=== PATIENT | female | born 1980 | race Caucasian/White ===

== ENCOUNTER 2023-02-18 10:22 | Inpatient (IN) ==
[2023-02-18] MEDS ORDERED: SODIUM CHLORIDE 0.9% 1000ML 2,000 ML IV ONE (11:20)
[2023-02-18] MEDS ORDERED: ACETAMINOPHEN 1,000 MG/100 ML VIAL IV STA (11:20)
[2023-02-18] MEDS ORDERED: cefTRIAXone SODIUM 2,000 MG/70 ML BAG IV STA (11:58)
[2023-02-18] MEDS ORDERED: AZITHROMYCIN 500 MG in DEXTROSE 5% 250 ML IV STA (11:58)
[2023-02-18] MEDS ORDERED: ALBUT/IPRATROP 3MG/0.5MG NEB 3 ML VIAL NEB STA (12:00)
[2023-02-18] MEDS ORDERED: methylPREDNISolone 125 MG/2 ML VIAL IV STA (12:00)
[2023-02-18 12:21] LABS: Influenza A virus by PCR Negative (Neg); Influenza B virus by PCR Negative (Neg); RSV by PCR Negative (Neg); SARS CoV2 RNA(COVID-19) Ceph NEGATIVE (Negative)
[2023-02-18 12:39] LABS: Basophils # (auto) 0.06 K/uL (0-0.2); Basophils % (auto) 0.4 %; Eosinophils # (auto) 0.11 K/uL (0-0.50); Eosinophils % (auto) 0.7 %; Hematocrit (blood only) 37.2 % (37.0-47.0); Hemoglobin 12.5 g/dl (12.0-16.0); Immature Granulocytes # (auto) 0.07 K/uL (0.01-0.20); Immature Granulocytes % (auto) 0.5 %; Lymphocytes # (auto) 1.18 K/uL (1.2-3.4); Lymphocytes % (auto) 7.6 %; Mean Corpuscular Hemoglobin 28.9 pg (25.0-34.0); Mean Corpuscular Hgb Conc 33.6 g/dL (32.0-36.0); Mean Corpuscular Volume 85.9 fL (80.0-100.0); Mean Platelet Volume 9.9 fL (9.4-12.4); Monocytes % (auto) 4.5 %; Neutrophils # (auto) 13.31 K/uL (1.40-6.50); Neutrophils % (auto) 86.3 %; Platelet Count 310 K/uL (130-400); RDW Coefficient of Variation 13.5 % (11.5-14.5); RDW Standard Deviation 42.5 fL (36.4-46.3); Red Blood Count 4.33 M/uL (4.20-5.40); White Blood Count 15.43 K/ul (4.8-10.8)
--- NOTE | 2023-02-18 12:47 | XRay Report ---
XR chest 1V portable HISTORY: Chest pain, nonspecific COMPARISON: Chest 08/31/2022. FINDINGS: No pneumothorax. No pleural effusions. The cardiac silhouette is normal in size. There are hazy bilateral airspace opacities most pronounced within the mid to lower lung zones. This likely rep resents a multifocal pneumonia. No acute fractures identified. IMPRESSION: Hazy bilateral airspace opacities likely representing a multifocal pneumonia. ACT 112: Negative or not required by law. Electronically signed by: Arpan Akers M.D. 02/18/2023 12:45 PM
[2023-02-18 12:50] LABS: Albumin Globulin Ratio 0.9 (0.9-2); Albumin Level 3.3 gm/dl (3.4-5.0); BUN Creatinine Ratio 14.6 (10-20); Bilirubin,Total 0.4 mg/dl (0.2-1.0); Calcium 8.9 mg/dl (8.6-10.3); Creatinine Clr Calc Pharmacy 157.4 ml/min; Est GFR (African American) 138.3 ml/min; Est GFR (Non-African American) 119.3 ml/min; Globulin 3.7 gm/dl (2.5-4.0); Magnesium 1.4 mg/dl (1.7-2.4); Potassium 3.7 mmol/L (3.5-5.1)
[2023-02-18] MEDS ORDERED: OPTIRAY 320 500ml IV ONE (13:50)
[2023-02-18] MEDS: MAGNESIUM SULFATE / D5W 1 GM/100 ML BAG IV SCH ×2 (14:03→15:24)
--- NOTE | 2023-02-18 14:04 | Electrocardiogram Report ---
Test Reason : Blood Pressure : / mmHG Vent. Rate : 097 BPM Atrial Rate : 097 BPM P-R Int : 120 ms QRS Dur : 072 ms QT Int : 342 ms P-R-T Axes : 049 003 013 degrees QTc Int : 434 ms Poor data quality, interpretation may be adversely affected Normal sinus rhythm Normal ECG When compared with ECG of 21-DEC-2022 17:04, Sinus rhythm has replaced Ectopic atrial rhythm Nonspecific T wave abnormality, improved in Inferior leads Nonspecific T wave abnormality no longer evident in Lateral leads Confirmed by Bran Mccloud ([id number]) on 02/18/2023 2:04:02 PM Referred By: REFERRED SELF Confirmed By:Bran Mccloud
--- NOTE | 2023-02-18 14:26 | CT Scan Report ---
CT ANGIOGRAPHY OF THE CHEST, PULMONARY EMBOLUS PROTOCOL CLINICAL HISTORY: Shortness of breath and chest pain. Evaluate for pulmonary embolus. COMPARISON STUDY: Chest CT August 31, 2022 and chest radiograph performed earlier today. TECHNIQUE: Following IV administration of 110 mL of Optiray, helical axial images of the chest were o btained utilizing the pulmonary embolus protocol. Maximal intensity projections and sagittal and cor onal reformats were viewed on an independent 3D workstation. IV contrast was administered without co mplication. Automated exposure control was utilized for the study. A dose lowering technique was ut ilized adhering to the principles of ALARA. CT DOSE: 515.06 mGycm FINDINGS: No pulmonary emboli are identified. There is no thoracic aortic dissection. Size of the he art is normal. There is no pericardial effusion. Mildly enlarged mediastinal and bilateral hilar lymp h nodes are noted. This lymphadenopathy has developed since CT of August 31, 2022. There is a trace left pleural effusion. This appears slightly loculated. There is no pneumothorax. There may be trace right pleural fluid as well. Note is made of extensive multifocal groundglass opacities, most pronoun monse within the lower lobes. There is developing lower lobe consolidation. Associated interlobular sep gerardo thickening is present. There is no cavitation. Incidental note is made of a 1.3 cm central right breast nodule on axial image 113 of 253. IMPRESSION: 1. No pulmonary emboli identified. 2. Extensive multifocal ground glass opacities with developing lower lobe consolidation and interlobu lar septal thickening. The findings favor multifocal pneumonia. A viral rather than bacterial etiolog y is favored. 3. Trace bilateral pleural effusions. 4. Mild mediastinal and bilateral hilar lymphadenopathy, likely reactive. 5. 1.3 cm central right breast nodule. This likely reflects a fibroadenoma however follow-up mammogra m and ultrasound are recommended. ACT 112: Positive. There are findings on this exam that require communication between the performing entity and the patient following Patient Test Result Information Act ([place] Act 112) guidelines. Electronically signed by: Bharath Cage M.D. 02/18/2023 2:24 PM
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
[2023-02-18 15:29] LABS: Adenovirus PCR Not Detected (NotDetected); Bordetella parapertussis PCR Not Detected (NotDetected); Bordetella pertussis PCR Not Detected (NotDetected); Chlamydia pneumoniae PCR Not Detected (NotDetected); Coronavirus 229E PCR Not Detected (NotDetected); Coronavirus CoV-2 (COVID19)PCR Not Detected (NotDetected); Coronavirus HKU1 PCR Not Detected (NotDetected); Coronavirus NL63 PCR Not Detected (NotDetected); Coronavirus OC43PCR Not Detected (NotDetected); Human Metapneumovirus PCR Not Detected (NotDetected); Influenza A PCR Not Detected (NotDetected); Influenza B PCR Not Detected (NotDetected); Mycoplasma pneumoniae PCR Not Detected (NotDetected); Parainfluenza Virus 1 PCR Not Detected (NotDetected); Parainfluenza Virus 2 PCR Not Detected (NotDetected); Parainfluenza Virus 3 PCR Not Detected (NotDetected); Parainfluenza Virus 4 PCR Not Detected (NotDetected); Respiratory Syncytial VirusPCR Not Detected (NotDetected); Rhinovirus/Enterovirus PCR Not Detected (NotDetected)
[2023-02-18] MEDS ORDERED: hydrOXYzine HCl 25 MG TAB PO PRN (18:02)
[2023-02-18] MEDS ORDERED: POLYETHYLENE (MIRALAX) 17 GM PACK PO PRN (18:02)
[2023-02-18] MEDS ORDERED: METOCLOPRAMIDE HCL 5 MG TABLET PO PRN (18:02)
[2023-02-18] MEDS ORDERED: HYOSCYAMINE SULFATE 0.125 MG TAB PO PRN (18:02)
[2023-02-18] MEDS ORDERED: MAGNESIUM SULFATE / D5W 1 GM/100 ML BAG IV ONE (18:02)
[2023-02-18] MEDS ORDERED: IBUPROFEN 600 MG TAB PO PRN (19:10)
[2023-02-18] MEDS: BENZONATATE 100 MG CAPSULE PO PRN (19:46)
[2023-02-18] MEDS: PIBRENTASVIR PO SCH (19:46)
[2023-02-18] MEDS: GLECAPREVIR PO SCH (19:46)
[2023-02-18] MEDS: AMITRIPTYLINE HCL 50 MG TAB PO PRN (20:41)
[2023-02-18] MEDS: guaiFENesin 600 MG TABCR PO SCH (21:51)
--- NOTE | 2023-02-19 07:24 | Hospitalist Progress Note ---
Date of Service February 19, 2023 Assessment & Plan Admission and Anticipated Discharge Date Admission Date: February 18, 2023 Results & Data Results & Data Vital Signs (Past 12 Hours) Vital Signs Temp Pulse Resp BP Pulse Ox O2 Del Method O2 Flow Rate 02/19/23 07:06 36.5 C 86 18 123/83 95 Room Air 02/18/23 22:45 88 L Room Air 02/18/23 21:45 Room Air 02/18/23 22:45 Room Air, Nasal Cannula 2 02/18/23 22:39 95 Nasal Cannula 2 02/18/23 22:33 36.6 C 86 18 129/78 90 Room Air
[2023-02-19 07:25] LABS: BUN Creatinine Ratio 27.7 (10-20); Calcium 9.1 mg/dl (8.6-10.3); Creatinine Clr Calc Pharmacy 157.5 ml/min; Est GFR (African American) 139.2 ml/min; Est GFR (Non-African American) 120.1 ml/min; Potassium 4.2 mmol/L (3.5-5.1)
[2023-02-19 07:28] LABS: Basophils # (auto) 0.02 K/uL (0-0.2); Basophils % (auto) 0.1 %; Hematocrit (blood only) 38.3 % (37.0-47.0); Hemoglobin 12.5 g/dl (12.0-16.0); Immature Granulocytes # (auto) 0.09 K/uL (0.01-0.20); Immature Granulocytes % (auto) 0.6 %; Lymphocytes # (auto) 1.47 K/uL (1.2-3.4); Lymphocytes % (auto) 9.1 %; Mean Corpuscular Hemoglobin 28.6 pg (25.0-34.0); Mean Corpuscular Hgb Conc 32.6 g/dL (32.0-36.0); Mean Corpuscular Volume 87.6 fL (80.0-100.0); Mean Platelet Volume 10.1 fL (9.4-12.4); Monocytes # (auto) 0.76 K/uL (0.11-0.59); Monocytes % (auto) 4.7 %; Neutrophils # (auto) 13.75 K/uL (1.40-6.50); Neutrophils % (auto) 85.5 %; Platelet Count 344 K/uL (130-400); RDW Coefficient of Variation 13.6 % (11.5-14.5); Red Blood Count 4.37 M/uL (4.20-5.40); White Blood Count 16.09 K/ul (4.8-10.8)
[2023-02-19] MEDS: UMECLIDINIUM BROMIDE 62.5MCG/BLISTER 7 PUFFS/INHALER INH SCH (08:57)
[2023-02-19] MEDS: guaiFENesin 600 MG TABCR PO SCH ×2 (08:57→21:13)
[2023-02-19] MEDS: FLUoxetine HCL 20 MG CAP PO SCH (08:57)
[2023-02-19] MEDS: MAGNESIUM OXIDE 400 MG TAB PO SCH (08:57)
[2023-02-19] MEDS: GABAPENTIN 800 MG TAB PO PRN ×2 (08:58→21:12)
[2023-02-19] MEDS: cefTRIAXone SODIUM 2,000 MG in DEXTROSE 5% 50 ML IV SCH (09:00)
[2023-02-19] MEDS: AZITHROMYCIN 250 MG in DEXTROSE 5% 250 ML IV SCH (09:01)
[2023-02-19] MEDS ORDERED: KETOROLAC TROMETHAMINE 15 MG/ML VIAL IV ONE (17:50)
[2023-02-19] MEDS ORDERED: ACETAMINOPHEN 325 MG TAB PO ONE (17:51)
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
[2023-02-19] MEDS: GLECAPREVIR PO SCH (21:08)
[2023-02-19] MEDS: PIBRENTASVIR PO SCH (21:08)
[2023-02-19] MEDS: DICLOFENAC SOD 1% GEL 100 GM TUBE EXT SCH (21:11)
[2023-02-19] MEDS: BENZONATATE 100 MG CAPSULE PO PRN (21:11)
[2023-02-19] MEDS: AMITRIPTYLINE HCL 50 MG TAB PO PRN (21:12)
[2023-02-19] MEDS: ACETAMINOPHEN 325 MG TAB PO SCH (21:14)
--- NOTE | 2023-02-20 06:57 | Hospitalist Progress Note ---
Date of Service February 20, 2023 Assessment & Plan (1) Multifocal pneumonia: Plan: 42yo female with a history of COPD, hepatitis C (course of Mavyret almost complete), nicotine dependence, PTSD, anxiety, and depression presents with CP and SOB secondary to multifocal pneumonia. Sepsis secondary to multifocal pneumonia - CXR consistent with viral pneumonia but presumed bacterial pneumonia given negative viral biofire - Continue azithromycin, ceftriaxone - Continue supplemental oxygen prn - Continue mucinex, tessalon perles for cough, can add hycodan if needed - Continue incentive spirometry, flutter valve COPD: continue home inhalers Hepatitis C: continue home mavyret; APAP is not contraindicated (if needed) in the setting of no transaminitis Nicotine dependence: has been too short of breath to smoke; continue to address tobacco cessation FOZIA/MDD: continue home regimen FEN: regular diet Code status: full code DVT ppx: lovenox Dispo: med/surg (2) COPD (chronic obstructive pulmonary disease): (3) Hepatitis C antibody positive in blood: (4) Current smoker: (5) PTSD (post-traumatic stress disorder): (6) Depression with anxiety: Admission and Anticipated Discharge Date Admission Date: February 18, 2023 Supervising Physician Co-Signing Physician Notes Patient seen, chart reviewed, case discussed with Dr. Marr Went to see patient 3 separate times, sleeping and appearing comfortable each time. Vitals noted, sleeping comfortably, breathing unlabored. Multifocal pneumoniacontinue Zithromax, Rocephinappears to be stablesuspect she will improve very slowly given the breath and severity of involvement with the pneumonia superimposed on her chronic lung disease. DVT prophylaxisLovenox Otherwise as above Subjective Patient seen and evaluated at bedside this morning. Patient reports her pain and SOB are relatively unchanged compared to yesterday. Patient otherwise has no new complaints today and denies abdominal pain, nausea, vomiting, lightheadedness, dizziness, and diarrhea. Review of Systems Review of Systems: See HPI Physical Exam Physical Exam: Constitutional: well-appearing, no acute distress HEENT: nasal cannula in place CV: regular rhythm, no murmur appreciated, extremities well-perfused Resp: breath sounds mildly diminished at the bases bilaterally, no wheezes/rales/rhonchi appreciated, no increased work of breathing Neuro: alert, oriented, no focal neurologic deficit appreciated Results & Data Results & Data Vital Signs (Past 12 Hours) Vital Signs Temp Pulse Resp BP Pulse Ox O2 Del Method O2 Flow Rate 02/19/23 21:39 36.4 C L 79 18 114/73 98 Nasal Cannula 2 02/19/23 19:46 Nasal Cannula 2 Resident Activity Tracking Resident Involvement: Resident Care Provided Care Provided: Adult Hospital Medicine (2) COPD (chronic obstructive pulmonary disease) COPD type: unspecified COPD Qualified Code(s): J44.9 - Chronic obstructive pulmonary disease, unspecified
[2023-02-20] MEDS: KETOROLAC TROMETHAMINE 15 MG/ML VIAL IV PRN ×3 (08:04→20:44)
[2023-02-20] MEDS: DICLOFENAC SOD 1% GEL 100 GM TUBE EXT SCH ×4 (08:05→20:38)
[2023-02-20] MEDS: MAGNESIUM OXIDE 400 MG TAB PO SCH (08:06)
[2023-02-20] MEDS: ACETAMINOPHEN 325 MG TAB PO SCH ×3 (08:06→20:37)
[2023-02-20] MEDS: GABAPENTIN 800 MG TAB PO PRN ×3 (08:07→21:33)
[2023-02-20] MEDS: guaiFENesin 600 MG TABCR PO SCH ×2 (08:07→21:33)
[2023-02-20] MEDS: FLUoxetine HCL 20 MG CAP PO SCH (08:07)
[2023-02-20] MEDS: UMECLIDINIUM BROMIDE 62.5MCG/BLISTER 7 PUFFS/INHALER INH SCH (08:07)
[2023-02-20] MEDS: AZITHROMYCIN 250 MG in DEXTROSE 5% 250 ML IV SCH (08:08)
[2023-02-20] MEDS: BENZONATATE 100 MG CAPSULE PO PRN ×3 (08:12→21:33)
[2023-02-20] MEDS: cefTRIAXone SODIUM 2,000 MG in DEXTROSE 5% 50 ML IV SCH (10:35)
--- NOTE | 2023-02-20 17:06 | Billing Data ---
Date of Service February 20, 2023 Coding Level of Care Code 84732 SUB INP/OBS CARE
[2023-02-20] MEDS: PIBRENTASVIR PO SCH (20:38)
[2023-02-20] MEDS: GLECAPREVIR PO SCH (20:38)
[2023-02-20] MEDS: AMITRIPTYLINE HCL 50 MG TAB PO PRN (22:01)
[2023-02-21 07:41] LABS: Hematocrit (blood only) 39.3 % (37.0-47.0); Hemoglobin 12.7 g/dl (12.0-16.0); Mean Corpuscular Hemoglobin 28.5 pg (25.0-34.0); Mean Corpuscular Hgb Conc 32.3 g/dL (32.0-36.0); Mean Corpuscular Volume 88.1 fL (80.0-100.0); Mean Platelet Volume 9.6 fL (9.4-12.4); Platelet Count 352 K/uL (130-400); RDW Coefficient of Variation 13.5 % (11.5-14.5); RDW Standard Deviation 43.5 fL (36.4-46.3); Red Blood Count 4.46 M/uL (4.20-5.40); White Blood Count 12.36 K/ul (4.8-10.8)
[2023-02-21 08:07] LABS: Albumin Globulin Ratio 0.9 (0.9-2); Albumin Level 3.2 gm/dl (3.4-5.0); Bilirubin,Total 0.5 mg/dl (0.2-1.0); Calcium 8.7 mg/dl (8.6-10.3); Creatinine Clr Calc Pharmacy 164.5 ml/min; Est GFR (African American) 141.2 ml/min; Est GFR (Non-African American) 121.9 ml/min; Globulin 3.5 gm/dl (2.5-4.0); Potassium 4.4 mmol/L (3.5-5.1); Total Protein 6.7 gm/dl (6.0-8.3)
[2023-02-21] MEDS ORDERED: ENOXAPARIN INJ 40 MG/0.4 ML SYR SQ SCH (09:00)
--- NOTE | 2023-02-21 09:01 | Hospitalist Progress Note ---
Date of Service February 21, 2023 Assessment & Plan (1) Multifocal pneumonia: Plan: 42yo female with a history of COPD, hepatitis C (course of Mavyret almost complete), nicotine dependence, PTSD, anxiety, and depression presents with CP and SOB secondary to multifocal pneumonia. Sepsis 2/2 multifocal pneumonia Acute hypoxic respiratory failure - CXR consistent with viral pneumonia but presumed bacterial pneumonia given negative RVP - Chest CTA- multifocal GGO w/ lower lobe consolidations - Improving on ceftriaxone/azithromycin- day 4 of antibiotics -Will switch to PO cefdinir/azithromycin, anticipate 7-10 day total course - Continue supplemental oxygen, attempt wean to RA - Supportive care- Mucinex, benzonatate, incentive spirometer, flutter valve COPD emphysema with chronic bronchitis - Gold Class B -Not in exacerbation -Continue home inhalers Hepatitis C infection -Has completed Mavyret on 02/20 -Repeat hepatitis C labs done today -Outpatient GI f/u Breast nodule -CT chest noted 1.3 cm R breast nodule- likely fibroadenoma -Will obtain mammogram + ultrasound as outpatient Nicotine dependence -Has been too short of breath to smoke; continue to address tobacco cessation -Outpatient f/u FOZIA/MDD -Continue home Prozac FEN: regular diet Code status: full code DVT ppx: Kathynox Dispo: medical/surgical (2) COPD (chronic obstructive pulmonary disease): (3) Hepatitis C antibody positive in blood: (4) Current smoker: (5) PTSD (post-traumatic stress disorder): (6) Depression with anxiety: Admission and Anticipated Discharge Date Admission Date: February 18, 2023 Supervising Physician Co-Signing Physician Notes Resident Physician Supervision Note: I independently interviewed and examined the patient and verified the [facility] history and physical, reviewed labs and image studies and agree with resident findings and care plan. Subjective Acute events overnight- none. Pt examined at bedside. Reports her breathing is improving but still dyspneic on exertion. Notes some central chest wall discomfort in association with coughing + dyspnea. Review of Systems Review of Systems: See HPI Physical Exam Physical Exam: Constitutional: well-appearing, no acute distress HEENT: nasal cannula in place CV: regular rhythm, no murmur appreciated, extremities well-perfused Resp: breath sounds mildly diminished at the bases bilaterally, no wheezes/rales/rhonchi appreciated, no increased work of breathing Neuro: alert, oriented, no focal neurologic deficit appreciated Results & Data Results & Data Vital Signs (Past 12 Hours) Vital Signs Temp Pulse Resp BP Pulse Ox O2 Del Method O2 Flow Rate 02/21/23 07:25 36.9 C 83 20 116/71 94 Nasal Cannula 3 02/20/23 21:42 36.8 C 86 18 115/69 98 Nasal Cannula Resident Activity Tracking Resident Involvement: Resident Care Provided Care Provided: Adult Hospital Medicine (2) COPD (chronic obstructive pulmonary disease) COPD type: unspecified COPD Qualified Code(s): J44.9 - Chronic obstructive pulmonary disease, unspecified
[2023-02-21] MEDS: ACETAMINOPHEN 325 MG TAB PO SCH ×2 (09:47→14:09)
[2023-02-21] MEDS: KETOROLAC TROMETHAMINE 15 MG/ML VIAL IV PRN ×2 (09:47→18:41)
[2023-02-21] MEDS: guaiFENesin 600 MG TABCR PO SCH (09:48)
[2023-02-21] MEDS: DICLOFENAC SOD 1% GEL 100 GM TUBE EXT SCH ×3 (09:48→17:28)
[2023-02-21] MEDS: UMECLIDINIUM BROMIDE 62.5MCG/BLISTER 7 PUFFS/INHALER INH SCH (09:49)
[2023-02-21 10:02] LABS: C Reactive Protein 7.2 mg/dl (0-0.5)
[2023-02-21] MEDS: MAGNESIUM OXIDE 400 MG TAB PO SCH (10:14)
[2023-02-21] MEDS: FLUoxetine HCL 20 MG CAP PO SCH (10:14)
[2023-02-21] MEDS ORDERED: AZITHROMYCIN 250 MG TAB PO SCH ×2 (10:45→11:00)
[2023-02-21] MEDS: CEFDINIR 300 MG CAP PO SCH ×2 (12:51→18:40)
--- NOTE | 2023-02-21 17:02 | Discharge Summary ---
Date of Service February 21, 2023 Admission HPI Per Admitting Provider Sue is a 42-year-old female with a past medical history of COPD with emphysema and current tobacco use, hepatitis C, depression/anxiety, PTSD, cholecystectomy 2016, and IBS not on medications diarrheal subtype who presents with shortness of breath. Sue reports she has been feeling poorly since Tuesday evening. Saw her kids at [facility] for a visit and started to feel lightheaded and had 'freezing chills all over'. Fatigued which cough and an achy chest since then. Nonproductive cough. 'Feel like I'm running a marathon whenever I walk' and gets short of breath just moving from wheelchair to the bed. Has felt feverish at home. Has not been smoking since sx because she cannot breath when she tries. Prior to this week 0.5ppd tobacco use. No wheezing, but breathing feels tight. Saw [facility] yesterday and 'lungs sounded OK' but has not been able to ambulate due to faitgue and weakness so came back to the ER for evaluation. 1 episode of yellow emisis after a coughing fit this am, otherwise no nausea/vomiting/diarrhea/constiption Medical History: Reviewed Medications: Reviewed. 3 days left of Mavyret Hep C treatment. Will have brought in from home. Takes gabapentin qid, prozac 40mg AM x2 tabs 80 tdd, am [id number] hs. Reglan for chronic n/v. Doesnt use zofran much anymore. Surgical History: Reviewed Family history: Reviewed. History of SC in father, alcoholism and multiple family members. Allergies: Reviewed. PCN nausea. Has a seizure post wellbutrin which was stopped Social History: +Tobacco abuse. Etoh. Code Status: Full Code. Jewel Gamboa would be surrogate decision maker in an emergency, she would not want her Kojo Luz to make decision sfor her. Admission Exam Per Admitting Provider General: A&Ox3. NAD. Cooperative. HEENT: Atraumatic, normocephalic. Vision/hearing intact Pulm: Right lower lobe light rales and crackles, left lower lobe crackles. Otherwise lungs are clear and no wheezing is present. Symmetrical chest rise. No increased work of breathing. No respiratory distress. Cardiac: RRR, -mrg. Radial pulses intact and symmetrical. Abdominal: Nontender, nondistended, soft. BS present. Extremities: Warm, dry. Moves all extremities equally Principal Diagnosis Community acquired pneumonia Discharge Exam Constitutional: well-appearing, no acute distress HEENT: nasal cannula in place CV: regular rhythm, no murmur appreciated, extremities well-perfused Resp: breath sounds mildly diminished at the bases bilaterally, no wheezes/rales/rhonchi appreciated, no increased work of breathing Neuro: alert, oriented, no focal neurologic deficit appreciated Discharge Data Allergies Allergy/AdvReac Type Severity Reaction Status Date / Time Penicillins Allergy Intermediate Vomiting Verified 01/20/23 14:38 Consultations 02/18/23 14:23 ED Decision to Admit Stat Ordered Studies 02/18/23 12:01 CT angio chest PE protocol Stat Hospital Course (1) Multifocal pneumonia: 42yo female with a history of COPD, hepatitis C (course of Mavyret almost complete), nicotine dependence, PTSD, anxiety, and depression presents with CP and SOB secondary to multifocal pneumonia. Sepsis 2/2 multifocal pneumonia Acute hypoxic respiratory failure - CXR consistent with viral pneumonia but presumed bacterial pneumonia given negative RVP - Chest CTA- multifocal GGO w/ lower lobe consolidations - Improved on IV ceftriaxone/azithromycin -Transitioned to PO cefdinir/azithromycin on discharge 7 day total course - Weaned to RA by the time of discharge. - Supportive care- Mucinex, benzonatate, incentive spirometer, flutter valve -Advised to continue, discharged with benzonatate PRN COPD emphysema with chronic bronchitis - Gold class B -Not in exacerbation -Continue home inhalers Hepatitis C infection -Has completed Mavyret on 02/20 -Repeat hepatitis C labs done -Outpatient GI f/u Breast nodule -CT chest noted 1.3 cm R breast nodule- likely fibroadenoma -Will obtain mammogram + ultrasound as outpatient Nicotine dependence -continue to address tobacco cessation -Outpatient f/u FOZIA/MDD -Continue home Prozac L FEN: regular diet Code status: full code DVT ppx: Lovenox Dispo: medical/surgical (2) COPD (chronic obstructive pulmonary disease): (3) Hepatitis C antibody positive in blood: (4) Current smoker: (5) PTSD (post-traumatic stress disorder): (6) Depression with anxiety: Total Time Total Time Spent Total Time Spent (In Minutes): 30 Discharge Plan Discharge Items Patient Disposition: Home - Self-Care Reason For Visit: MULTIFOCAL PNA Discharge Diagnosis: Pneumonia Activity: Resume your previous activity Non-emergency contact: Primary Care Provider Call non-emergency contact if: your symptoms worsen Follow-up/Referrals: Ina Oliver MD [Primary Care Provider] - Otilio Oliver MD [Resident] - Diet: Regular Addtl Attending Provider Instructions: You were admitted to the hospital for pneumonia. You were treated with antibiotics which resolved your infection. You will continue antibiotics to complete 7 total days of treatment. In the meantime, please continue regular incentive spirometry and flutter valve use. A discharge summary will be sent to your primary care physician to ensure continuity of care. Please bring this discharge summary with you to your next office appointment so that your provider can review it at that time. Follow-up appointments: - Make a follow-up appointment with your PCP within the next week. It is very important that you follow up with them shortly after discharge from the hospital. - Keep all your follow-up appointments as already scheduled. If you cannot make an appointment, notify your provider. Medications: Your medication list has been reviewed and reconciled upon discharge to ensure accuracy and continuity of care. An updated list of all your medications is included with your hospital discharge paperwork. Please review this list closely, and make note of any changes. -We sent cefdinir and azithromycin to the pharmacy. These are antibiotics you will take to complete the remainder of your treatment. Take cefdinir first dose tonight. Starting tomorrow, take cefdinir twice a day (about 12 hours apart) and azithromycin once daily. You will do this for 3 days to complete 7 total days of treatment. -We sent benzonatate to the pharmacy as cough relief medication on an as-needed basis. Take your medications as instructed; do not skip a dose of your medicines. Make sure all of your doctors know every medicine you are taking (including [id number] medicines, vitamins, and supplements). Call your primary care provider before taking any new medicines (including [id number] medicines, vitamins, and supplements), because some of these may interact with your current medications, or may make your symptoms worse. Tell your primary care provider if you cannot afford your medications. CONTACT YOUR PRIMARY CARE PROVIDER if you experience any of the following: -Cough -Difficulty breathing -Chest pain -Rib pain -Difficulty eating/drinking - Difficulty following your treatment plan, or difficulty taking medications CALL 911 OR GO TO THE EMERGENCY DEPARTMENT if you experience any of the following: - Sudden, severe abdominal pain or nausea/vomiting - Severe chest pain, or chest pain that radiates (moves) to your jaw or arm - Sudden, severe shortness of breath or difficulty breathing Thank you for allowing us to participate in your care Pending Studies at Discharge: No Stand-Alone Forms: My [facility] [employer], Smoking Cessation Medications and DC Order Prescriptions: New benzonatate 100 mg capsule 100 mg PO TID PRN (Reason: cough) Qty: 10 0RF cefdinir 300 mg capsule 300 mg PO BID 3 Days Qty: 7 0RF Rx Instructions: Take one tablet tonight. Starting tomorrow, take 1 tablet twice daily azithromycin 250 mg tablet 250 mg PO DAILY 3 Days Qty: 3 0RF Rx Instructions: Start taking 1 tablet daily tomorrow Continued hydroxyzine pamoate 25 mg capsule 25 mg PO BID PRN (Reason: Anxiety) gabapentin 800 mg tablet 800 mg PO QID PRN (Reason: "panic attacks") norethindrone (contraceptive) [Ortho Micronor] 0.35 mg tablet 0.35 mg PO DAILY Qty: 28 12RF albuterol sulfate 90 mcg/actuation HFA aerosol inhaler 2 puff inhalation Q6H PRN (Reason: shortness of breath or wheezing) Qty: 1 3RF Spiriva Respimat 2.5 mcg/actuation mist 2 puff inhalation DAILY Qty: 4 2RF ondansetron 4 mg tablet,disintegrating 4 mg PO Q6H PRN (Reason: nausea and vomiting) Qty: 12 0RF albuterol sulfate 2.5 mg /3 mL (0.083 %) Solution For Nebulization 2.5 mg INHALATION DIRECTED PRN (Reason: Shortness Of Breath Or Wheezing) fluoxetine 40 mg capsule 80 mg PO QAM doxycycline hyclate 100 mg capsule 100 mg PO BID amitriptyline 25 mg tablet 50 mg PO HS PRN (Reason: Insomnia) hyoscyamine sulfate 0.125 mg tablet 0.125 mg PO TID PRN (Reason: Spasms) metoclopramide HCl [Reglan] 5 mg tablet 5 mg PO Q6H Rx Instructions: STARTED 12/11/22 FOR 14 DAYS. fluticasone propionate [Allergy Relief (fluticasone)] 50 mcg/actuation spray,suspension 1 spray intranasal DAILY PRN (Reason: Congestion) Rx Instructions: administer into each nostril once daily Discontinued Mavyret 100-40 mg tablet 3 tab PO DAILY Discharge Orders: Discharge Order (Routine); Ordered 02/21/23 Ordered By: Otilio Oliver Admission Data Admit Date/Time: 02/18/23 15:06 Attending Provider: Ericka Villarreal Admit Provider: Palmer Ahuja Primary Care Provider: Ina Oliver Other Providers: Palmer Ahuja ; Angelo Ceja Supervising Physician Co-Signing Physician Notes Resident Physician Supervision Note: I independently interviewed and examined the patient and verified the [facility] history and physical, reviewed labs and image studies and agree with resident findings and care plan. Resident Activity Tracking Resident Involvement: Resident Care Provided Care Provided: Adult Hospital Medicine
== END 2023-02-21 18:57 | disposition home or self-care (01) | DRG 871 ==
LOC: ED 10:22 → 3N 15:06 → SUATTDRO 15:06 → 3N 17:11

== ENCOUNTER 2024-07-06 02:05 | Observation (INO) ==
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
[2024-07-06] MEDS: ALBUT/IPRATROP 3MG/0.5MG NEB 3 ML VIAL NEB STA (02:36)
[2024-07-06] MEDS: methylPREDNISolone 125 MG/2 ML VIAL IV STA (02:36)
[2024-07-06 02:46] LABS: Basophils # (auto) 0.06 K/uL (0.00-0.20); Basophils % (auto) 0.4 %; Eosinophils % (auto) 0.7 %; Hematocrit (blood only) 40.7 % (37.0-47.0); Hemoglobin 13.6 g/dl (12.0-16.0); Immature Granulocytes # (auto) 0.05 K/uL (0.01-0.20); Immature Granulocytes % (auto) 0.3 %; Lymphocytes # (auto) 1.75 K/uL (1.20-3.40); Lymphocytes % (auto) 12.2 %; Mean Corpuscular Hemoglobin 28.3 pg (25.0-34.0); Mean Corpuscular Hgb Conc 33.4 g/dL (32.0-36.0); Mean Corpuscular Volume 84.6 fL (80.0-100.0); Mean Platelet Volume 9.9 fL (9.4-12.4); Monocytes # (auto) 0.86 K/uL (0.11-0.59); Neutrophils # (auto) 11.58 K/uL (1.40-6.50); Neutrophils % (auto) 80.4 %; Platelet Count 218 K/uL (130-400); RDW Coefficient of Variation 14.2 % (11.5-14.5); RDW Standard Deviation 43.8 fL (36.4-46.3); Red Blood Count 4.81 M/uL (4.20-5.40)
[2024-07-06 03:03] LABS: Albumin Level 3.9 gm/dl (3.4-5.0); BUN Creatinine Ratio 4.8 (10-20); Bilirubin Direct 0.1 mg/dl (0-0.2); Bilirubin,Total 0.4 mg/dl (0.2-1.0); Creatinine Clr Calc Pharmacy 125.5 ml/min; Est GFR (African American) 126.2 ml/min; Est GFR (Non-African American) 108.9 ml/min; Magnesium 1.6 mg/dl (1.7-2.4); Potassium 2.6 mmol/L (3.5-5.1); Total Protein 7.3 gm/dl (6.0-8.3)
[2024-07-06] MEDS: AZITHROMYCIN 250 MG TAB PO ONE (03:29)
[2024-07-06] MEDS: MAGNESIUM SULFATE / D5W 1 GM/100 ML BAG IV SCH (03:29)
[2024-07-06] MEDS: POTASSIUM CHLORIDE CRTAB 20 MEQ TABCR PO STA (03:29)
[2024-07-06] MEDS: SODIUM CHLORIDE 0.9% 1,000 ML IV SCH (03:29)
[2024-07-06] MEDS: cefTRIAXone SODIUM 2,000 MG/50 ML BAG IV STA (03:29)
[2024-07-06] MEDS: POTASSIUM CHLORIDE / WTR 10 MEQ/100 ML PLCT IV SCH ×2 (03:29→17:57)
[2024-07-06] MEDS: ACETAMINOPHEN 1,000 MG/100 ML VIAL IV STA (03:30)
[2024-07-06 03:51] LABS: Adenovirus PCR Not Detected (NotDetected); Bordetella parapertussis PCR Not Detected (NotDetected); Bordetella pertussis PCR Not Detected (NotDetected); Chlamydia pneumoniae PCR Not Detected (NotDetected); Coronavirus 229E PCR Not Detected (NotDetected); Coronavirus CoV-2 (COVID19)PCR Not Detected (NotDetected); Coronavirus HKU1 PCR Not Detected (NotDetected); Coronavirus NL63 PCR Not Detected (NotDetected); Coronavirus OC43PCR Not Detected (NotDetected); Human Metapneumovirus PCR Not Detected (NotDetected); Influenza A PCR Not Detected (NotDetected); Influenza B PCR Not Detected (NotDetected); Mycoplasma pneumoniae PCR Not Detected (NotDetected); Parainfluenza Virus 1 PCR Not Detected (NotDetected); Parainfluenza Virus 2 PCR Not Detected (NotDetected); Parainfluenza Virus 3 PCR Not Detected (NotDetected); Parainfluenza Virus 4 PCR Not Detected (NotDetected); Respiratory Syncytial VirusPCR Not Detected (NotDetected); Rhinovirus/Enterovirus PCR DETECTED (NotDetected)
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
[2024-07-06] MEDS: AZITHROMYCIN 500 MG in DEXTROSE 5% 250 ML IV SCH (04:40)
--- OUTSIDE RECORDS SUMMARY | 2024-07-06 04:47 | External Medical Summary | Continuity of Care Document ---
Author Name Unknown Organization [facility] [id number] [place] [phone] Care Team Providers Care Polymerization Engineer Name Role Phone Otilio Oliver Primary Care Physician [phone] Encounter [facility] [id number] Date(s): 03/05/24 - 03/05/24 [facility] [address] [address] [phone] Encounter Diagnosis Shortness of breath(Discharge Diagnosis) - 03/05/24 Fatigue(Discharge Diagnosis) - 03/05/24 Discharge Disposition: Home or Self Care Attending Physician: MD Xavier Christopher Allergies, Adverse Reactions, Alerts Substance Criticality Severity Reaction Reaction Severity Status PCN (penicillin) Vomiting Act martha Assessment and Plan Extracted from: Title:Office Visit Note Author:DO Reagan Kamron Date:03/05/24 1.Shortness of breath Acute w/ systemic symptoms or complicated injury Goal:Resolution Plan: -Originally planned to obtain CXR for patient however desk clerks supervisor mistakenly told her XR was not available when this physician told patient she could go to the hospital for XR at the time. We do not have a good picture right now of what may be causing her shortness of breath. -After steroid treatment her lungs sound clear, no longer with end expiratory wheezes, however patient is feeling subjectively worse with her breathing. -Told patient because she is feeling worse, we do not have a clear picture if this is fluid overload vs COPD vs other pathology and her blood pressure was soft at 96/70 to go to the ER for further evaluation and possible treatment. -Patient was agreeable to evaluation at the ER and declined the need for any transportation via EMS. -Told patient to follow up on Tuesday for re-evaluation. 2.Fatigue Same plan as above. Told patient we will need to rule out fluid overload component to her shortness of breath and if that is optimized then we can try to expedite her sleep study. Immunizations Given and Recorded Vaccine Date Status Refusal Reason tetanus/diphtheria/pertuss, acel (Tdap) 11/16/22 G iven tetanus/diphtheria/pertuss, acel (Tdap) 1 10/14/11 Recorded tetanus/diphtheria/pertuss, acel (Tdap) 2 10/24/09 Recorded influenza virus vaccine, inactivated 11/01/22 Give n SARS-CoV-2 mRNA ([id number]) 3 11/07/21 Recorded hepatitis B adult vaccine 4 08/11/12 Recorded hepatitis B adult vaccine 5 07/05/12 Recorded influenza virus vaccine, H1N1 6 12/23/09 Recorded 1Result Comment: 2022-11-01: Historical information-source unspecified 2Result Comment: 2022-11-01: Historical information-source unspecified 3Result Comment: 2022-11-01: Historical information-source unspecified 4Result Comment: 2022-11-01: Historical information-source unspecified 5Result Comment: 2022-11-01: Historical information-source unspecified 6Result Comment: 2022-11-01: Historical information-source unspecified Medications Albuterol (Eqv-ProAir HFA) 90 mcg/inh inhalation aerosol inhale 2 puffs by mouth every 4 hours if needed Start Date: 11/01/22 Status: Ordered Benefiber oral powder for reconstitution Start: 12/20/23 10:06:00 AM EST, 5 mL, PO, bid, Disp# 477 g, Refills: 6, PRN: Constipation Start Date: 12/20/23 Stop Date: 07/17/24 Status: Ordered clindamycin 1% topical lotion Start: 12/20/23 4:38:00 PM EST, 1 appl, topical, bid, Disp# 60 mL, Refills: 2, to areas under arms, under breast, thighs and belly, Pharmacy: [id number] Start Date: 12/20/23 Status: Ordered dicyclomine 20 mg oral tablet Start: 12/20/23 10:06:00 AM EST, 1 tab, PO, qid, Disp# 120 tab, Refills: 1 Start Date: 12/20/23 Stop Date: 02/18/24 Status: Ordered doxycycline hyclate 100 mg oral capsule Start: 12/20/23 4:39:00 PM EST, 1 cap, PO, bid, Disp# 60 cap, Refills: 2, TAKE 1 CAPSULE BY MOUTH TWICE DAILY, Pharmacy: [id number] Start Date: 12/20/23 Status: Ordered gabapentin 800 mg oral tablet TAKE 1 TABLET BY MOUTH 4 TIMES DAILY NEEDED FOR ANXIETY Start Date: 11/01/22 Status: Ordered Lasix 20 mg oral tablet Start: 03/02/24 5:15:00 PM EDT, 1 tab, PO, Daily, Disp# 7 tab, Pharmacy: [id number] Start Date: 03/02/24 Stop Date: 03/09/24 Status: Ordered metoclopramide 10 mg oral tablet Start: 12/09/22 1:56:00 PM EST, 1 tab, PO, q6h, Disp# 56 tab, Refills: 1, Pharmacy: [id number] Start Date: 12/09/22 Stop Date: 01/06/23 Status: Ordered MetroCream 0.75% topical cream Start: 12/20/23 4:37:00 PM EST, 1 appl, topical, bid, Disp# 45 g, Refills: 2, to face., Pharmacy: [id number] Start Date: 12/20/23 Status: Ordered omeprazole 20 mg oral delayed release capsule Start: 12/20/23 10:06:00 AM EST, See Instructions, Disp# 30 cap, Refills: 0, Take 1 capsule by mouthonce daily for 30 days Start Date: 12/20/23 Status: Ordered Spiriva Respimat 1.25 mcg/inh inhalation aerosol Start: 11/01/22 11:38:00 AM EST, 2 puff, inhaled, Daily, Disp# 1 each, Refills: 1, Pharmacy: [id number] Start Date: 11/01/22 Status: Ordered Mental Status 03/05/24 Barriers to Learning one year None evide nt Mandatory Health Literacy Documentation Yes Health Literacy Communication Barriers N ever Primary Language Yemeni Problem List Condition Confirmation Course Effective Dates Status H ealth Status Informant Anxiety Confirmed Active Right carpal tunnel syndrome Confirmed Active Chronic obstructive pulmonary disease Confirmed Active Cigarette smoker Confirmed Active Complex posttraumatic stress disorder Confirmed Active Depression Confirmed Active Hidradenitis suppurativa Confirmed Active Low back pain Confirmed Active NSAID long-term use Confirmed Active Prediabetes Confirmed Active Thyroid nodule Confirmed Active Hepatitis C Confirmed Active Diagnosis Diagnosis Type Effective Dates Health Status Cl inical Service Informant Shortness of breath Discharge Diagnosis 03/05/24 Fatigue Discharge Diagnosis 03/05/24 Procedures Procedure Date Related Diagnosis Body Site Status CT abd/Pelvis 1 11/15/22 Completed Chest X-ray 2 03/10/21 Completed US scan of thyroid 3 08/27/20 Comp leted Ultrasound scan of thyroid 4 09/07/16 Completed section 5 Comple federica Cholecystectomy 6 Complet ed 1Few subpleural solid nodules of the right lower lobe measuring 4 mm, unchanged and likely benign. Mild patchy subsegmental ground glass densities at the right greater than left bases. No pneumatosis or pneumo peritoneum. Unremarkable spleen, pancreas, liver and adrenal glands. Cholecystectomy. Patency of the hepatic and portal veins. Unremarkable kidneys. No hydronephrosis. Urinary bladder wall thickening with partial distention. Unremarkable uterus with bilateral ovarian follicles. Mild to moderate atherosclerosisof the aorta. Mild inguinal chain lymphadenopathy measures up to approximately 10 mm. Precaval lymph nodes measures up to 9 mm, likely benign. No bowel obstruction or bowel wall thickening. Normal appendix. Mural fibrofatty changes of the ascending colon. Tiny fat filled umbilical hernia. Osteitis c ondensans ilii. Moderate degeneration of the pubic symphysis with asymmetric sclerosis of the acutebone. No acute fracture identified 2Impression: Mild bronchitic inflammation. No acute airspace disease 3Impression: 1. Thyroid gland not enlarged, approximately symmetric right and left lobes. 2. Right thyroid lobe, #1 small nonaggressive 0.6 cm masses. 4the thyroid is relativly homogonous the gland is normal in size. [id number] Vital Signs Most recent to oldest [Reference Range]: 1 Heart Rate 67 bpm (03/05/24 10:31 AM) Respiratory Rate 19 br/min (03/05/24 10:31 AM) Blood Pressure 96/70mmHg (03/05/24 10:31 AM) Cuff Pulse Pressure 26 mmHg (03/05/24 10:31 AM) Social History Social History Type Response Smoking Status Current every day he lucio smoker Sex FCM Outpt Note * Salavitabar, DO, Daljit: PERFORM Neves, DO, Tracy B: MODIFY Event Display: FCM Outpt Note Authored Date: Chief Complaint F/u from tuesday, sleep apnea? History of Present Illness Ayesha is a 43 year old female coming in for follow up from Tuesday. -Patient states that she took the prednisone and made her feel okay Tuesday and Tuesday. Today she woke up and her throat hurts and felt like she hasn't slept all night. She had a little more energy on the weekend and she was feeling like she could breathe easier. -She got the water pill yesterday and told to take in the morning so didn't get to start yet but does have it. -She feels really congested, having chills but nofevers. -She's coughing a little bit up but unsure of the color. Her breathing is a little worse today. Shefeels more short of breath, more wheezy, more tired. Review of Systems As per HPI. Physical Exam Vitals & Measurements HR:67(Monitored) RR:19 BP:96/70 SpO2:98% PHQ2 Data(Data Documented on:03/05/2024 10:30) Emotional health assessment NEGATIVE Gen Appearance: Not in any acute distress, well-appearing. Heart: S1 and S2, RRR, no murmurs. Lungs: Clear to auscultation bilaterally Neuro: alert, oriented, no focal deficit appreciated. Assessment/Plan 1.Shortness of breath Acute w/ systemic symptoms or complicated injury Goal:Resolution Plan: -Originally planned to obtain CXR for patient however desk clerks supervisor mistakenly told her XR was not available when this physician told patient she could go to the hospital for XR at the time. We do not have a good picture right now of what may be causing her shortness of breath. -After steroid treatment her lungs sound clear, no longer with end expiratory wheezes, however patient is feeling subjectively worse with her breathing. -Told patient because she is feeling worse, we do not have a clear picture if this is fluid overload vs COPD vs other pathology and her blood pressure was soft at 96/70 to go to the ER for further evaluation and possible treatment. -Patient was agreeable to evaluation at the ER and declined the need for any transportation via EMS. -Told patient to follow up on Tuesday for re-evaluation. 2.Fatigue Same plan as above. Told patient we will need to rule out fluid overload component to her shortnessof breath and if that is optimized then we can try to expedite her sleep study. Attestation Pt seen and examined in concert with Dr. Reagan, agree with history and physical as documentedabove. Plan reviewed in detail. Any corrections or additions are noted here - Agree with plan. Worsening symptoms and patient with poor compliance to treatment plan. To ER. [facility] notified and spoke with Jonna to give report. Problem List/Past Medical History Ongoing Anxiety Chronic obstructive pulmonary disease Cigarette smoker Complex posttraumatic stress disorder Depression Hepatitis C Hidradenitis suppurativa Low back pain NSAID long-term use Prediabetes Right carpal tunnel syndrome Thyroid nodule Procedure/Surgical History CT abd/Pelvis| Service Date: 3Chest X-ray| Service Date: 03/10/2021US scan of thyroid| Service Date: 08/27/2020Ultrasound scan of thyroid| Service Date: 09/07/2016CholecystectomyCesarean section Medications albuterol(Albuterol (Eqv-ProAir HFA) 90 mcg/inh inhalation aerosol) clindamycin topical(clindamycin 1% topical lotion), 1 appl, topical, bid, 2 refills dicyclomine(dicyclomine 20 mg oral tablet), 20 mg= 1 tab, PO, qid, 1 refills doxycycline(doxycycline hyclate 100 mg oral capsule), 100 mg= 1 cap, PO, bid, 2 refills furosemide(Lasix 20 mg oral tablet), 20 mg= 1 tab, PO, Daily gabapentin(gabapentin 800 mg oral tablet) metoclopramide(metoclopramide 10 mg oral tablet), 10 mg= 1 tab, PO, q6h, 1 refills metroNIDAZOLE topical(MetroCream 0.75% topical cream), 1 appl, topical, bid, 2 refills omeprazole(omeprazole 20 mg oral delayed release capsule), See Instructions tiotropium(Spiriva Respimat 1.25 mcg/inh inhalation aerosol), 2 puff, inhaled, Daily, 1 refills wheat dextrin(Benefiber oral powder for reconstitution), 5 mL, PO, bid, PRN, 6 refills Allergies PCN (penicillin)Vomiting Social History Smoking Status Current every day heavy smoker Immunizations Vaccine Date Status tetanus/diphtheria/pertuss, acel (Tdap) 11/16/2022 Given influenza virus vaccine, inactivated 11/01/2022 Given SARS-CoV-2 mRNA ([id number]) 11/07/2021 Recorded Comments : 2022-11-01: Historical information-source unspecified hepatitis B adult vaccine 08/11/2012 Recorded Comments : 2022-11-01: Historical information-source unspecified hepatitis B adult vaccine 07/05/2012 Recorded Comments : 2022-11-01: Historical information-source unspecified tetanus/diphtheria/pertuss, acel (Tdap) 10/14/2011 Recorded Comments : 2022-11-01: Historical information-source unspecified influenza virus vaccine, H1N1 12/23/2009 Recorded Comments : 2022-11-01: Historical information-source unspecified tetanus/diphtheria/pertuss, acel (Tdap) 10/24/2009 Recorded Comments : 2022-11-01: Historical information-source unspecified Recommendations Health Maintenance Pending(in the next year) OverDue Adult Influenza Vaccine due04/22/23and every 1year Due Adult COVID-19 Vaccination due03/05/24Unknown Frequency Adult Folic Acid Supplementation due03/05/24and every 3year Adult Social Determinants of Health Screening due03/05/24Unknown Frequency Cervical Cancer Screening due03/05/24Unknown Frequency Colorectal Cancer Screening due03/05/24Unknown Frequency Pneumococcal Vaccine Adults and Adolescents with Chronic Illness due03/05/24One-time only Due In Future Body Mass Index not due until03/03/25and every 366day Satisfied(in the past 1 year) Satisfied Body Mass Index on12/20/23.Satisfied by TRAMAINE Xie Paula Lipid Screening on07/06/23.Satisfied by Contributor_systemShip It Bag Check Electronic Signature on File Electronically Reviewed/Signed by: Daljit Reagan DO Author Signature Dt/Tm:03/05/2024 12:12 PM Resident Department of Family Medicine Electronically Reviewed/Signed by: Tracy Neves DO Cosigner Signature Dt/Tm: 03/05/2024 12:37 PM Department of Family Medicine [place] Patient Care team information Care Team Personnel Name: MD Benito, Wasiq Position: Resident Member Role: Primary Care Provider Address: Address: [facility] [address] [address]"
[2024-07-06] MEDS ORDERED: methylPREDNISolone 1000 MG/16 ML IV SCH (05:25)
[2024-07-06] MEDS ORDERED: ACETAMINOPHEN 325 MG TAB PO PRN (05:25)
--- NOTE | 2024-07-06 07:01 | XRay Report ---
XR chest 1V portable CLINICAL HISTORY: Sepsis. COMPARISON STUDY: Chest CT February 18, 2023. Chest radiograph March 05, 2024. FINDINGS: Lung volumes are normal. Left basilar and left perihilar opacity is present.. There may be minimal right basilar opacity. There is no pneumothorax or pleural effusion. Cardiac size is normal. Mediastinal contours are normal. There is no evidence for pulmonary edema. IMPRESSION: Patchy left lung opacities and suspected right basilar opacity. The findings favor pneumo carolyn. Post treatment radiographs to ensure resolution are recommended. ACT 112: Negative or not required by law. Electronically signed by: Bharath Cage M.D. 07/06/2024 6:59 AM
[2024-07-06] MEDS: ALBUT/IPRATROP 3MG/0.5MG NEB 3 ML VIAL NEB SCH (07:18)
[2024-07-06] MEDS: guaiFENesin 600 MG TABCR PO SCH (09:45)
[2024-07-06] MEDS: FLUoxetine HCL 20 MG CAP PO SCH (09:46)
[2024-07-06] MEDS: methylPREDNISolone 40 MG in SYRINGE 0 ML IV SCH (09:46)
--- NOTE | 2024-07-06 13:52 | Electrocardiogram Report ---
Test Reason : Blood Pressure : */* mmHG Vent. Rate : 100 BPM Atrial Rate : 100 BPM P-R Int : 138 ms QRS Dur : 76 ms QT Int : 352 ms P-R-T Axes : 64 0 29 degrees QTcB Int : 454 ms Normal sinus rhythm Possible Left atrial enlargement Nonspecific ST abnormality Abnormal ECG When compared with ECG of 05-Mar-2024 11:53, No significant change was found Confirmed by Bran Mccloud ([id number]) on 07/06/2024 1:51:49 PM Referred By: REFERRED SELF Confirmed By: Bran Mccloud
[2024-07-06] MEDS: GABAPENTIN 800 MG TAB PO PRN (15:13)
[2024-07-06] MEDS: BENZONATATE 100 MG CAPSULE PO PRN (15:15)
--- NOTE | 2024-07-06 15:36 | Electrocardiogram Report ---
Test Reason : Blood Pressure : */* mmHG Vent. Rate : 86 BPM Atrial Rate : 86 BPM P-R Int : 140 ms QRS Dur : 80 ms QT Int : 286 ms P-R-T Axes : 61 -29 -1 degrees QTcB Int : 342 ms Normal sinus rhythm Cannot rule out Anterior infarct , age undetermined Abnormal ECG When compared with ECG of 06-Jul-2024 02:28, Nonspecific T wave abnormality now evident in Anterolateral leads QT has shortened Confirmed by Bran Mccloud ([id number]) on 07/06/2024 3:36:04 PM Referred By: REFERRED SELF Confirmed By: Bran Mccloud
--- NOTE | 2024-07-06 16:21 | Hospitalist Progress Note ---
Date of Service July 06, 2024 Assessment & Plan (1) COPD exacerbation: (2) Rhinovirus infection: (3) CAP (community acquired pneumonia): (4) Current smoker: (5) Hypomagnesemia: (6) Hypokalemia: (7) Depression with anxiety: (8) PTSD (post-traumatic stress disorder): Plan COPD exacerbation/community-acquired pneumonia/bronchitis/rhinovirus infection- Received a methylprednisolone 125 mg IV from the ED, DuoNeb treatment, Tylenol 1 g IV, ceftriaxone 2 g IV and azithromycin 500 mg p.o. Methylprednisolone 40 mg IV every 8 hours Duonebs every 4 hours while awake and every 2 hours when necessary. Ceftriaxone 2 g IV daily Azithromycin 500 mg IV daily Guaifenesin extended release 1200 mg p.o. twice daily Sputum Gram stain and culture, still to be collected Blood culture: Pending Tobacco cessation counseling - nicotine patch ordered Tessalon Perles 100 mg p.o. 3 times daily as needed Hypomagnesemia/hypokalemia- Magnesium 1.6, given magnesium sulfate 2 g IV Potassium 2.6, given 10 mill equivalent K riders IV x 4 Recheck ordered for 1600 Depression with anxiety- Continue fluoxetine, hydroxyzine pt has gabapentin 800 QID prn for anxiety - from her psych provider. pt has requested this and ordered Tobacco abuse- Cessation counseling Admission and Anticipated Discharge Date Admission Date: July 06, 2024 Subjective Patient very tired during my encounter. Feels like her breathing is better than when she came in but not at her baseline. falls asleep during my interview did have fevers and chills at home Mario - SR 80s Review of Systems Review of Systems: All systems reviewed & are unremarkable except as noted in Subjective Physical Exam Physical Exam: General: NAD, VS as above, drowsy but arousable Resp: normal respiratory effort, expiratory wheezing throughout CV: RRR, no murmur, Extremities: Moves all extremities, no edema Neuro: A&O x3, Skin: intact, no lesions noted Results & Data Results & Data Vital Signs (Past 12 Hours) Vital Signs Temp Pulse Pulse Resp BP Pulse Ox Pulse Ox 07/06/24 15:50 36.6 C 88 18 116/74 92 07/06/24 14:38 90 18 93 07/06/24 14:32 84 07/06/24 11:22 78 18 91 07/06/24 11:16 36.8 C 80 20 109/70 92 07/06/24 09:56 07/06/24 08:09 36.8 C 75 20 106/70 99 07/06/24 07:38 106 H 07/06/24 07:20 77 18 93 07/06/24 05:31 07/06/24 05:25 36.6 C 78 18 100/64 94 07/06/24 05:25 94 07/06/24 05:20 07/06/24 05:20 36.6 C 78 18 100/64 94 O2 Del Method O2 Del Method 07/06/24 15:50 Room Air 07/06/24 14:38 Room Air 07/06/24 14:32 07/06/24 11:22 Room Air 07/06/24 11:16 Room Air 07/06/24 09:56 Room Air 07/06/24 08:09 Room Air 07/06/24 07:38 07/06/24 07:20 Room Air 07/06/24 05:31 Room Air 07/06/24 05:25 Room Air 07/06/24 05:25 Room Air 07/06/24 05:20 Room Air 07/06/24 05:20 Room Air PG Care Time/CCT Total # of Minutes Spent Total Time Spent with Patient: Total time spent is greater than 50% in coordination of care (as documented) at patient's floor/unit and/or counseling patient: Coding Level of Care Code None Diagnoses COPD exacerbation J44.1 Rhinovirus infection B34.8 CAP (community acquired pneumonia) J18.9 Laterality: right Lung location: lower lobe of lung Current smoker F17.200 Hypomagnesemia E83.42 Hypokalemia E87.6 Depression with anxiety F41.8 PTSD (post-traumatic stress disorder) F43.10 (3) CAP (community acquired pneumonia) Laterality: right Lung location: lower lobe of lung Qualified Code(s): J18.9 - Pneumonia, unspecified organism
[2024-07-06] MEDS: NICOTINE 21 MG/24 HR TDSY TD SCH (17:06)
[2024-07-06 17:32] LABS: BUN Creatinine Ratio 11.1 (10-20); Calcium 8.6 mg/dl (8.6-10.3); Creatinine Clr Calc Pharmacy 145.3 ml/min; Est GFR (African American) 132.1 ml/min; Magnesium 1.9 mg/dl (1.7-2.4); Potassium 3.4 mmol/L (3.5-5.1)
[2024-07-06] MEDS: MELATONIN 3 MG TAB PO PRN (21:25)
[2024-07-06] MEDS: hydrOXYzine HCl 25 MG TAB PO PRN (21:25)
[2024-07-07] MEDS: cefTRIAXone SODIUM 2,000 MG/50 ML BAG IV SCH (04:58)
[2024-07-07] MEDS: AZITHROMYCIN 500 MG in DEXTROSE 5% 250 ML IV SCH (05:32)
[2024-07-07 07:21] LABS: Hematocrit (blood only) 39.9 % (37.0-47.0); Hemoglobin 12.7 g/dl (12.0-16.0); Mean Corpuscular Hemoglobin 27.9 pg (25.0-34.0); Mean Corpuscular Hgb Conc 31.8 g/dL (32.0-36.0); Mean Corpuscular Volume 87.5 fL (80.0-100.0); Mean Platelet Volume 10.2 fL (9.4-12.4); Platelet Count 232 K/uL (130-400); RDW Coefficient of Variation 14.6 % (11.5-14.5); RDW Standard Deviation 46.7 fL (36.4-46.3); Red Blood Count 4.56 M/uL (4.20-5.40); White Blood Count 19.28 K/ul (4.8-10.8)
[2024-07-07 07:23] VITALS: BP 127/83; TEMP 98.2
[2024-07-07 07:36] LABS: Albumin Globulin Ratio 1.1 (0.9-2); Albumin Level 3.5 gm/dl (3.4-5.0); BUN Creatinine Ratio 21.4 (10-20); Bilirubin,Total 0.2 mg/dl (0.2-1.0); Calcium 8.8 mg/dl (8.6-10.3); Creatinine Clr Calc Pharmacy 89.3 ml/min; Est GFR (African American) 130.5 ml/min; Est GFR (Non-African American) 112.6 ml/min; Globulin 3.3 gm/dl (2.5-4.0); Magnesium 1.9 mg/dl (1.7-2.4); Potassium 3.9 mmol/L (3.5-5.1); Total Protein 6.8 gm/dl (6.0-8.3)
[2024-07-07 07:48] LABS: Basophils # (auto) 0.03 K/uL (0.00-0.20); Basophils % (auto) 0.2 %; Immature Granulocytes # (auto) 0.14 K/uL (0.01-0.20); Immature Granulocytes % (auto) 0.7 %; Lymphocytes # (auto) 1.06 K/uL (1.20-3.40); Lymphocytes % (auto) 5.5 %; Monocytes # (auto) 0.47 K/uL (0.11-0.59); Monocytes % (auto) 2.4 %; Neutrophils # (auto) 17.58 K/uL (1.40-6.50); Neutrophils % (auto) 91.2 %; Polychromasia 1+
[2024-07-07 10:55] VITALS: RESP 18; O2SAT 96
--- NOTE | 2024-07-07 11:02 | Discharge Summary ---
Discharge Summary Date of Service July 07, 2024 Principal Dx & Hospital Course #1 = Principal Diagnosis (1) COPD exacerbation: (2) Rhinovirus infection: (3) CAP (community acquired pneumonia): (4) Current smoker: (5) Hypomagnesemia: (6) Hypokalemia: (7) Depression with anxiety: (8) PTSD (post-traumatic stress disorder): Plan COPD exacerbation/community-acquired pneumonia/bronchitis/rhinovirus infection- Received a methylprednisolone 125 mg IV from the ED, DuoNeb treatment, Tylenol 1 g IV, ceftriaxone 2 g IV and azithromycin 500 mg p.o. Methylprednisolone 40 mg IV every 8 hours - transition to prednisone taper at discharge Duonebs every 4 hours while awake and every 2 hours when necessary. received ceftriaxone and azithromycin, discharged on cefpodoxime and azithromycin Guaifenesin extended release 1200 mg p.o. twice daily Blood culture: Pending, no growth at 24 hours Tobacco cessation counseling - nicotine patch ordered Tessalon Perles 100 mg p.o. 3 times daily as needed Hypomagnesemia/hypokalemia- repleted and stable Depression with anxiety- Continue fluoxetine, hydroxyzine and gabapentin no changes made to home medication Tobacco abuse- Cessation counseling Notes For Next Care Provider admitted with COPD exacerbation/rhinovirus/pneumonia. Treated with IV steroids antibiotics, improving and has remained stable with room air. Recommend discussion with PCP for daily maintenance inhalers for her COPD. Initial chest x-ray recommended repeat chest x-ray at completion of treatment to ensure resolution of her pneumonia Medication Changes From Visit prednisone taper Azithromycin and cefpodoxime Mucinex Albuterol nebulizer Admission HPI Per Admitting Provider The patient is a 43-year-old female with a past medical history including COPD, allergic rhinitis, depression with anxiety, PTSD, carpal tunnel syndrome, multiple pulmonary nodules, hidradenitis suppurativa, hepatitis C, mediastinal and hilar lymphadenopathy, and somatic dysfunction of thoracic region. The patient presents to the emergency department with symptoms as noted above. She has noted she continues to smoke. [employer] testing in the emergency department did reveal positivity for rhinovirus infection Discharge Exam General: NAD, VS as above Resp: normal respiratory effort,Expiratory wheezing in the bases much improved from yesterday, stable on room air. CV: RRR, no murmur, Abd: normal bowel sounds, non tender, no hepatosplenomegaly Extremities: Moves all extremities, no edema Neuro: A&O x3, Skin: intact, no lesions noted Discharge Plan Discharge Items Patient Disposition: Home - Self-Care Reason For Visit: COPD EXAC Discharge Diagnosis: COPD exacerbatin, PNA, rhinovirus Condition on Discharge: Good Activity: Resume your previous activity Non-emergency contact: Primary Care Provider Call non-emergency contact if: you have any medication questions, your symptoms worsen and your temperature is above 101 Follow-up/Referrals: Estefania Ortega DO [Resident] - (Follow up with [facility] within one week ) PCP,NO [Primary Care Provider] - Diet: Heart Healthy Addtl Attending Provider Instructions: Sue, You were hospitalized after having shortness of breath. You are found to have rhinovirus, COPD exacerbation and pneumonia. You have been treated with IV steroids and antibiotics. You will be discharged with oral steroids, antibiotics and nebulizer treatment. your symptoms are likely exacerbated by your smoking. Anything you can do to stop or cut back smoking will be greatly beneficial to you. I have sent in the following: - albuterol nebulizer treatments - 2 antibiotics: cefpodoxime and azithromycin, start these 07/08 - prednisone taper: start 07/08 - mucinex (Over the counter so may not be covered by insurance) You should be seen by your PCP next week to discuss daily maintenance inhalers for your COPD and consider a repeat chest x-ray to ensure that your pneumonia has improved. Medications: Your medication list has been reviewed and reconciled upon discharge to ensure accuracy and continuity of care. An updated list of all your medications is included with your hospital discharge paperwork. Please review this list closely, and make note of any changes. Take your medications as instructed; do not skip a dose of your medicines. Make sure all of your doctors know every medicine you are taking (including ukpx-jit-mgfrpka medicines, vitamins, and supplements). Call your primary care provider before taking any new medicines (including over- the-counter medicines, vitamins, and supplements), because some of these may interact with your current medications, or may make your symptoms worse. Tell your primary care provider if you cannot afford your medications. Activity: You can do normal everyday activities as your body allows. Take rest breaks if you feel tired. Do not overexert. Stop activity if you have pain, shortness of breath or feel dizzy. Follow-up appointments: Make an appointment with your primary care physician within one week of discharge. A copy of this summary will be sent to them. Every time you see your primary care physician, or any other doctor, bring your medication list, and a list of questions. CONTACT YOUR PRIMARY CARE PROVIDER if you experience any of the following: Shortness of breath or difficulty breathing Fevers or chills Feeling tired with normal activity or experiencing dizziness or fainting Difficulty following your treatment plan, or difficulty taking medications CALL 911 OR GO TO THE EMERGENCY DEPARTMENT if you experience any of the following: Severe abdominal pain or nausea/vomiting Severe chest pain, or chest pain that radiates (moves) to your jaw or arm Sudden, severe shortness of breath or difficulty breathing Thank you for allowing us to participate in your care. Pending Studies at Discharge: Yes ( blood culture) Stand-Alone Forms: My [facility], Smoking Cessation Medications and DC Order Prescriptions: New guaifenesin [Mucinex] 600 mg Tablet Extended Release 12hr 1,200 mg PO Q12 5 Days Qty: 20 0RF azithromycin 250 mg tablet 250 mg PO DAILY 3 Days Qty: 3 0RF Rx Instructions: first dose AM 915 cefpodoxime 200 mg tablet 200 mg PO BID Qty: 10 0RF Rx Instructions: must administer with a meal/food. First dose AM 15 prednisone 10 mg tablet See Taper PO DIRECTED Qty: 26 0RF Taper: Taper, Blank 40 mg DAILY for 2 Days 30 mg DAILY for 3 Days 20 mg DAILY for 3 Days 10 mg DAILY for 3 Days Rx Instructions: see taper instructions Continued hydroxyzine pamoate 25 mg capsule 25 mg PO BID PRN (Reason: Anxiety) gabapentin 800 mg tablet 800 mg PO QID PRN (Reason: "panic attacks") albuterol sulfate 90 mcg/actuation HFA aerosol inhaler 2 puff inhalation Q6H PRN (Reason: shortness of breath or wheezing) Qty: 1 3RF benzonatate 100 mg capsule 100 mg PO TID PRN (Reason: cough) Qty: 30 0RF ondansetron 4 mg tablet,disintegrating 4 mg PO Q6H PRN (Reason: nausea and vomiting) Qty: 12 0RF fluoxetine 40 mg capsule 80 mg PO QAM fluticasone propionate [Allergy Relief (fluticasone)] 50 mcg/actuation spray,suspension 1 spray intranasal DAILY PRN (Reason: Congestion) Rx Instructions: administer into each nostril once daily dicyclomine 20 mg tablet 20 mg PO TID PRN (Reason: abdominal pain) Qty: 20 0RF albuterol sulfate 90 mcg/actuation HFA aerosol inhaler 2 inha INH QID PRN (Reason: shortness of breath or wheezing) Qty: 1 0RF Changed albuterol sulfate 2.5 mg /3 mL (0.083 %) Solution For Nebulization 2.5 mg INHALATION Q4H PRN (Reason: Shortness Of Breath Or Wheezing) Qty: 90 1RF Discontinued doxycycline hyclate 100 mg capsule 100 mg PO BID Discharge Orders: Discharge Order (Routine); Ordered 07/07/24 Ordered By: Marry Morton/Other Patient Handouts: When You Have Pneumonia Admission Data Admit Date/Time: 07/06/24 03:59 Attending Provider: Juvenal Jefferson Admit Provider: Guille Rousseau Primary Care Provider: PCP,NO Other Providers: Guille Rousseau Hospital Stay Data Consultations 07/06/24 03:19 ED Decision to Admit Stat Diagnostic Imagining Performed Chest X-Ray 07/06/24 02:21 XR chest 1V portable CLINICAL HISTORY: Sepsis. COMPARISON STUDY: Chest CT February 18, 2023. Chest radiograph March 05, 2024. FINDINGS: Lung volumes are normal. Left basilar and left perihilar opacity is present.. There may be minimal right basilar opacity. There is no pneumothorax or pleural effusion. Cardiac size is normal. Mediastinal contours are normal. There is no evidence for pulmonary edema. IMPRESSION: Patchy left lung opacities and suspected right basilar opacity. The findings favor pneumonia. Post treatment radiographs to ensure resolution are recommended. ACT 112: Negative or not required by law. Electronically signed by: Bharath Cage M.D. 07/06/2024 6:59 AM Pending Results Patient Have Any Pending Studies at Discharge: Yes ( blood culture) Discharge Instructions Given to Patient (Per Discharging Provider) Sue, You were hospitalized after having shortness of breath. You are found to have rhinovirus, COPD exacerbation and pneumonia. You have been treated with IV steroids and antibiotics. You will be discharged with oral steroids, antibiotics and nebulizer treatment. your symptoms are likely exacerbated by your smoking. Anything you can do to stop or cut back smoking will be greatly beneficial to you. I have sent in the following: - albuterol nebulizer treatments - 2 antibiotics: cefpodoxime and azithromycin, start these 07/08 - prednisone taper: start 07/08 - mucinex (Over the counter so may not be covered by insurance) You should be seen by your PCP next week to discuss daily maintenance inhalers for your COPD and consider a repeat chest x-ray to ensure that your pneumonia has improved. Medications: Your medication list has been reviewed and reconciled upon discharge to ensure accuracy and continuity of care. An updated list of all your medications is included with your hospital discharge paperwork. Please review this list closely, and make note of any changes. Take your medications as instructed; do not skip a dose of your medicines. Make sure all of your doctors know every medicine you are taking (including acyc-fqe-ngdnhwj medicines, vitamins, and supplements). Call your primary care provider before taking any new medicines (including over- the-counter medicines, vitamins, and supplements), because some of these may interact with your current medications, or may make your symptoms worse. Tell your primary care provider if you cannot afford your medications. Activity: You can do normal everyday activities as your body allows. Take rest breaks if you feel tired. Do not overexert. Stop activity if you have pain, shortness of breath or feel dizzy. Follow-up appointments: Make an appointment with your primary care physician within one week of discharge. A copy of this summary will be sent to them. Every time you see your primary care physician, or any other doctor, bring your medication list, and a list of questions. CONTACT YOUR PRIMARY CARE PROVIDER if you experience any of the following: Shortness of breath or difficulty breathing Fevers or chills Feeling tired with normal activity or experiencing dizziness or fainting Difficulty following your treatment plan, or difficulty taking medications CALL 911 OR GO TO THE EMERGENCY DEPARTMENT if you experience any of the following: Severe abdominal pain or nausea/vomiting Severe chest pain, or chest pain that radiates (moves) to your jaw or arm Sudden, severe shortness of breath or difficulty breathing Thank you for allowing us to participate in your care. Total Time Total Time Spent Total Time Spent (In Minutes): Time spent day of discharge 35 minutes including direct patient care, medication reconciliation, documentation, review of labs and images, and coordination of care. Coding Level of Care Code 80285 INP/OBS DISCH >30 MIN Diagnoses COPD exacerbation J44.1 Rhinovirus infection B34.8 CAP (community acquired pneumonia) J18.9 Laterality: right Lung location: lower lobe of lung Current smoker F17.200 Hypomagnesemia E83.42 Hypokalemia E87.6 Depression with anxiety F41.8 PTSD (post-traumatic stress disorder) F43.10
[2024-07-07 11:25] VITALS: PULSE 98
== END 2024-07-07 12:04 | disposition home or self-care (01) | DRG 190 ==
LOC: ED 02:05 → 2W 03:59 → INTOOBSV 03:59 → SUATTDRO 03:59 → 2W 05:31